=== PATIENT | male | born 1990 | race American Indian/Alaskan Native ===

== ENCOUNTER 2018-09-13 19:08 | Inpatient (IN) | payer OTHER ==
[2018-09-13 19:14] VITALS: BMI 28.1
--- NOTE | 2018-09-13 19:32 | PDOC ---
Attending Attestation - Medical Decision Making 09/13/18 19:[address] Jaimes, psychiatry training consultant, awaiting call back. 8:02pm Second call placed to Dr. Jaimes, psychiatry training consultant, made aware Jaret Xavier NP is training consultant. Call made, awaiting call back. Documentation prepared by Flaco Mosquera, acting as medical office administrator for Angela Berumen MD. 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 As per parents, he was speaking less than usual starting this morning, then his speech became slurred later in the day. This is not his baseline. He states he takes adderall as prescribed. Denies drugs of abuse, alcohol use. Very limited history from patient. He states his thoughts are "blank". - Physicial Exam PE: GENERAL: Awake, alert, and oriented to person and place. HEAD: No signs of trauma EYES: PERRLA, EOMI, sclera anicteric, conjunctiva clear ENT: Auricles normal inspection, hearing grossly normal, nares patent, oropharynx clear without exudates. Moist mucosa NECK: Normal ROM, supple, no lymphadenopathy, JVD, or masses LUNGS: Breath sounds equal, clear to auscultation bilaterally. No wheezes, and no crackles HEART: Regular rate and rhythm, normal S1 and S2, no murmurs, rubs or gallops ABDOMEN: Soft, nontender, normoactive bowel sounds. No guarding, no rebound. No masses EXTREMITIES: Normal range of motion, no edema. No clubbing or cyanosis. No cords, erythema, or tenderness NEUROLOGICAL: Cranial nerves II through XII grossly intact. Normal speech, normal gait. Motor and sensation intact SKIN: Warm, Dry, normal turgor, no rashes or lesions noted. PSYCHIATRIC: Somewhat bizarre affect. Responding to internal stimuli. Paucity of speech. Denies SI/HI. States he is uncertain if he has AH/VH. Appears paranoid. - Medical Decision Making Will obtain AMS workup to r/o any organic cause for the AMS. However, high suspicion for psychiatric etiology. Will consult with psychiatry. <Angela Berumen - Last Filed: 09/13/18 20:17>
[2018-09-13 19:57] LABS: BASO % 0.5 % (0-2.0); EOS % 1.4 % (0-4.5); HEMATOCRIT 39.9 % (35.4-49); HEMOGLOBIN 14.4 GM/dL (11.7-16.9); LYMPH % 17.3 % (8-40); MCH 33.3 pg (25.7-33.7); MEAN CELL VOLUME 92.4 fl (80-96); MEAN PLT VOLUME 7.4 fl (7.5-11.1); MONO % 6.9 % (3.8-10.2); NEUT % 73.9 % (42.8-82.8); PLATELET COUNT 201 K/MM3 (134-434); RBC 4.32 M/mm3 (4.00-5.60); RDW 13.6 % (11.9-15.9); WHITE BLOOD COUNT 9.7 K/mm3 (4.0-10.0)
[2018-09-13 19:58] LABS: URINE APPEARANCE CLEAR; URINE BILIRUBIN NEGATIVE (<2.0 mg/dL); URINE COLOR YELLOW; URINE GLUCOSE (UA) NEGATIVE (NEGATIVE); URINE KETONE 1+ (NEGATIVE); URINE LEUK ESTERASE NEGATIVE (NEGATIVE); URINE NITRITE NEGATIVE (NEGATIVE); URINE PROTEIN NEGATIVE (NEGATIVE)
[2018-09-13 20:08] LABS: COCAINE, UR NEGATIVE ng/ml (CUTOFF=300); METHADONE, UR NEGATIVE ng/ml (CUTOFF=300); OPIATES, URI NEGATIVE ng/ml (CUTOFF=300); PHENCYCLIDINE,URINE NEGATIVE ng/ml (CUTOFF=25); URINE BARBITURATES NEGATIVE ng/ml (CUTOFF=200); URINE BENZODIAZEPINES NEGATIVE ng/ml (CUTOFF=200)
[2018-09-13 20:12] LABS: URINE AMPHETAMINES POSITIVE ng/ml (CUTOFF=500)
[2018-09-13 20:15] LABS: INR 1.16 (0.83-1.09); PROTHROMBIN TIME (PATIENT) 13.7 SEC (9.7-13.0)
--- NOTE | 2018-09-13 20:17 | PDOC ---
History of Present Illness - General Chief Complaint: CVA/TIA Stated Complaint: LOSS OF MEMORY, SLURRED SPEECH Time Seen by Provider: 09/13/18 19:20 History Source: Patient, Family Exam Limitations: Clinical Condition - History of Present Illness Initial Comments: 09/13/18 20:09 The patient is a 28M with a PMH of schizoid personality disorder who presents to the ER with his parents for AMS. The mother states that around 1030 this morning, they noted his voice becoming quieter. This progressed throughout the day. Around 1830, the family noticed that he began to develop slurred speech, which seemed to resolve upon his arrival to the ER. He denies any acute complaints. He denies taking any illicit drugs, EtOH, and cigarette use. Past History - Past Medical History Allergies/Adverse Reactions: Allergies Allergy/AdvReac Type Severity Reaction Status Date / Time No Known Allergies Allergy Verified 09/13/18 19:13 Home Medications: Ambulatory Orders No Home Medications 0 dose .ROUTE UTDICT 03/13/12 Zolpidem Tartrate [Ambien] 10 mg PO HS #5 tablet 12/26/15 COPD: No - Suicide/Smoking/Psychosocial Hx Smoking Status: No Smoking History: Never smoked Number of Cigarettes Smoked Daily: 0 Hx Alcohol Use: No Review of Systems - Review of Systems Able to Perform ROS?: No (Not answering questions ) Is the patient limited [place] proficient: No *Physical Exam - Vital Signs Last Vital Signs Temp Pulse Resp BP Pulse Ox 98.5 F 89 18 134/77 99 09/13/18 19:10 09/13/18 19:10 09/13/18 19:10 09/13/18 19:10 09/13/18 19:10 - Physical Exam Comments: 09/13/18 20:36 GENERAL: Well developed, well nourished. Awake and alert. Bizarre and flat affect. HEENT: Normocephalic, atraumatic. Hearing grossly normal. Moist mucous membranes. PERRLA, EOMI. No conjunctival pallor. Sclera are non-icteric. NECK: Supple. Full ROM. No JVD. CARDIOVASCULAR: Regular rate and rhythm. No murmurs, rubs, or gallops. PULMONARY: No evidence of respiratory distress. Lungs clear to auscultation bilaterally. No wheezing, rales or rhonchi. ABDOMINAL: Soft. Non-tender. Non-distended. No rebound or guarding. GENITOURINARY: No CVA tenderness bilaterally. MUSCULOSKELETAL: Normal range of motion at all joints. No bony deformities or tenderness. EXTREMITIES: No cyanosis. No clubbing. No edema. No calf tenderness or swelling. SKIN: Warm and dry. Normal capillary refill. No rashes. No jaundice. NEUROLOGICAL: Alert, awake, appropriate. Cranial nerves 2-12 grossly intact. Normal speech. PSYCHIATRIC: Cooperative. Minimal eye contact. Staring around the room. Subdued voice. Moderate Sedation - Procedure Monitoring Vital Signs: Procedure Monitoring Vital Signs Temperature 98.5 F 09/13/18 19:10 Pulse Rate 89 09/13/18 19:10 Respiratory Rate 18 09/13/18 19:10 Blood Pressure 134/77 09/13/18 19:10 O2 Sat by Pulse Oximetry (%) 99 09/13/18 19:10 Heart Score/ECG Review #1 ECG reviewed & interpreted by me at: 20:44 General ECG Interpretation: Sinus Rhythm, Normal Rate, Normal Intervals, No acute ischemic changes Compared to previous ECG there are: Previous ECG unavail 09/13/18 20:44 NSR vent rate 95 WV 144 QRS 88 QTc 431 No STD or DEMIAN No signs of acute ischemia ED Treatment Course - LABORATORY CBC & Chemistry Diagram: 09/13/18 19:45 09/13/18 19:45 - ADDITIONAL ORDERS Additional order review: Laboratory Results 09/13/18 19:45 Opiates Screen Negative Methadone Screen Negative Barbiturate Screen Negative Phencyclidine Screen Negative MDMA (Ecstasy) Screen Negative Benzodiazepines Screen Negative Cocaine Screen Negative U Marijuana (THC) Screen Negative 09/13/18 19:45 RBC 4.32 MCV 92.4 MCHC 36.0 H RDW 13.6 D MPV 7.4 L Neutrophils % 73.9 D Lymphocytes % 17.3 D Monocytes % 6.9 Eosinophils % 1.4 Basophils % 0.5 - RADIOLOGY Radiology Studies Ordered: Category Date Time Status HEAD CT WITHOUT CONTRAST [CT] Stat CT Scan 09/13/18 19:42 Ordered Medical Decision Making - Medical Decision Making 09/13/18 20:45 The patient is a 28M with a PMH of schizoid personality disorder who presents to the ER with complaints of abnormal speech. The patient's affect is flat and bizarre, concerning for possible psychotic episode. Concern for paranoia based on exam and pt's behavior. Labs WNL. UA only significant for amphetamines. 1:1 order placed. Pt denies any SI or HI. Triage note appreciated. However, pt has no clinical findings of TIA/CVA. Hx does not correlate with any TIA or CVA. Dr. Jaimes paged x 2. Jaret paged x 2. 09/13/18 21:11 Jaret paged x 3. 09/13/18 22:10 Due to no call back from psych, will page [facility] for possible psych transfer. CTH negative for acute pathology. 09/14/18 00:11 [facility] transfer center called and states that the psychiatrist is reviewing the patient's case. Instructed to f/u in 1 hour. 09/14/18 01:20 [facility] requests documentation. Will send appropriate documentation. Pt is medically clear for psychiatric evaluation at [facility]. 09/14/18 02:50 [facility] requests copy of head CT. Copy of documentation sent. They are requesting a psychiatric evaluation prior to transfer. I have informed them that we do not have psychiatry available for evaluation. Pending call back. 09/14/18 03:19 Pt signed out to Dr. Acosta for further evaluation. *DC/Admit/Observation/Transfer - Referrals Referrals: Danyel Felipe [Primary Care Provider] - - Patient Instructions - Post Discharge Activity
[2018-09-13 20:27] LABS: ALK PHOS 38 U/L (45-117); ANION GAP 7 MMOL/L (8-16); BILIRUBIN,TOTAL 0.7 mg/dL (0.2-1); BLOOD UREA NITROGEN 15 mg/dL (7-18); CALCIUM 8.5 mg/dL (8.5-10.1); CHLORIDE 102 mmol/L (98-107); CO2 27 mmol/L (21-32); CREATININE 1.3 mg/dL (0.55-1.3); GLUCOSE,RANDOM 114 mg/dL (74-106); MAGNESIUM 2.1 mg/dL (1.8-2.4); POTASSIUM 3.7 mmol/L (3.5-5.1); SGOT/AST 7 U/L (15-37); SGPT/ALT 26 U/L (13-61); SODIUM 136 mmol/L (136-145); TOT PROT 6.8 g/dl (6.4-8.2)
--- NOTE | 2018-09-14 04:04 | PDOC ---
*Physical Exam - Vital Signs Last Vital Signs Temp Pulse Resp BP Pulse Ox 98.2 F 95 H 18 112/77 100 09/13/18 23:59 09/13/18 23:59 09/13/18 23:59 09/13/18 23:59 09/13/18 23:59 ED Treatment Course - LABORATORY CBC & Chemistry Diagram: 09/13/18 19:45 09/13/18 19:45 - ADDITIONAL ORDERS Additional order review: Laboratory Results 09/13/18 09/13/18 09/13/18 19:45 19:45 19:45 PT with INR 13.70 H INR 1.16 H Sodium 136 Potassium 3.7 Chloride 102 Carbon Dioxide 27 Anion Gap 7 L BUN 15 Creatinine 1.3 Creat Clearance w eGFR > 60 Random Glucose 114 H Calcium 8.5 Magnesium 2.1 Total Bilirubin 0.7 AST 7 L ALT 26 Alkaline Phosphatase 38 L Creatine Kinase 52 Troponin I < 0.02 Total Protein 6.8 Albumin 4.0 Urine Color Urine Appearance Urine pH Ur Specific [place] Urine Protein Urine Glucose (UA) Urine Ketones Urine Blood Urine Nitrite Urine Bilirubin Urine Urobilinogen Ur Leukocyte Esterase Salicylates Opiates Screen Negative Methadone Screen Negative Acetaminophen Barbiturate Screen Negative Phencyclidine Screen Negative Ur Amphetamines Screen Positive A* MDMA (Ecstasy) Screen Negative Benzodiazepines Screen Negative Cocaine Screen Negative U Marijuana (THC) Screen Negative Alcohol, Quantitative < 3.0 09/13/18 09/13/18 19:45 19:45 PT with INR INR Sodium Potassium Chloride Carbon Dioxide Anion Gap BUN Creatinine Creat Clearance w eGFR Random Glucose Calcium Magnesium Total Bilirubin AST ALT Alkaline Phosphatase Creatine Kinase Troponin I Total Protein Albumin Urine Color Yellow Urine Appearance Clear Urine pH 5.0 Ur Specific [place] 1.028 Urine Protein Negative Urine Glucose (UA) Negative Urine Ketones 1+ H Urine Blood Negative Urine Nitrite Negative Urine Bilirubin Negative Urine Urobilinogen 2.0 Ur Leukocyte Esterase Negative Salicylates < 1.7 L Opiates Screen Methadone Screen Acetaminophen < 2.0 L Barbiturate Screen Phencyclidine Screen Ur Amphetamines Screen MDMA (Ecstasy) Screen Benzodiazepines Screen Cocaine Screen U Marijuana (THC) Screen Alcohol, Quantitative 09/13/18 19:45 RBC 4.32 MCV 92.4 MCHC 36.0 H RDW 13.6 D MPV 7.4 L Neutrophils % 73.9 D Lymphocytes % 17.3 D Monocytes % 6.9 Eosinophils % 1.4 Basophils % 0.5 Medical Decision Making - Medical Decision Making Pt was signed out to me by resident Dr. Ordoñez, who explained the presentation, ED course, any pending results, and needed interventions. Pending interventions include psych evaluation before pt can be transferred to [facility]. Pt is currently stable and is lying comfortably. 09/14/18 03:56 Spoke with hospitalist team, who accepted pt for ED OBS/short stay. Will also attempt to call [facility] to see if they will accept the pt for psychiatric eval. Pts father has signed transfer consent forms for [facility]. 09/14/18 04:04 [facility] has no psychiatric beds available. Pending psych eval by [facility] in the AM. Hospitalist team has come to see the pt at bedside. 09/14/18 04:38 *DC/Admit/Observation/Transfer - Discharge Dispostion Decision to Admit order Date/Time: Decision to Admit Order Category Date Time Status Decision to Admit to Hospital Routine Admission 09/14/18 03:50 Ordered - Referrals Referrals: Danyel Felipe [Primary Care Provider] - - Patient Instructions - Post Discharge Activity
--- NOTE | 2018-09-14 05:49 | HP ---
CHIEF COMPLAINT: slurred speech HISTORY OF PRESENT ILLNESS: 28 y/o M w/PMH of schizoid personality d/o brought into ER for slurred speech. This AM pt's voice quieter than usual and progressed throughout the day. Pt then had slurred speech but no motor deficits and pt remembers slurred speech but did not offer any explanation. Pt did not have slurred speech in ER. Pt has flat affect and does not answer all questions asked. He did not answer when asked about hallucinations. He denies SI/HI. He denies CP, SOB, N/V/F/C, abd pain, LE edema. Pt is on adderall and nardil. Denies drug use. ER course was notable for: (1) (2) (3) PAST MEDICAL HISTORY: schizoid peronality d/o PAST SURGICAL HISTORY: no surgeries Social History: Smoking: denies Alcohol: denies Drugs: denies Family History: n-c Allergies No Known Allergies Allergy (Verified 09/13/18 19:13) HOME MEDICATIONS: Home Medications Medication Instructions Recorded No Home Medications 0 dose .ROUTE UTDICT 03/13/12 Zolpidem Tartrate [Ambien] 10 mg PO HS #5 tablet 12/26/15 REVIEW OF SYSTEMS CONSTITUTIONAL: Absent: fever, chills CARDIOVASCULAR: Absent: chest pain RESPIRATORY: Absent: cough GASTROINTESTINAL: Absent: abdominal pain GENITOURINARY: Absent: dysuria PSYCHIATRIC: Absent: suicidal or homicidal ideation PHYSICAL EXAMINATION Vital Signs - 24 hr 09/13/18 09/13/18 19:10 23:59 Temperature 98.5 F 98.2 F Pulse Rate 89 Pulse Rate [ 95 H Apical] Respiratory 18 18 Rate Blood Pressure 134/77 Blood Pressure 112/77 [Right Arm] O2 Sat by Pulse 99 100 Oximetry (%) GENERAL: Awake, alert, and fully oriented, in no acute distress. Very slow to answer questions. Does not answer all questions. HEAD: Normal with no signs of trauma. EYES: Pupils equal, round and reactive to light, sclera anicteric, conjunctiva clear. EARS, NOSE, THROAT: Ears normal, nares patent, NECK: Normal range of motion LUNGS: Breath sounds equal, clear to auscultation bilaterally. No wheezes, and no crackles. No accessory muscle use. HEART: Regular rate and rhythm, normal S1 and S2 without murmur, rub or gallop. ABDOMEN: Soft, nontender, not distended, normoactive bowel sounds LOWER EXTREMITIES: warm, well-perfused. No peripheral edema. PSYCHIATRIC: Not completely cooperative with all questions. Flat affect. SKIN: Warm, dry Laboratory Results - last 24 hr 09/13/18 09/13/18 09/13/18 19:45 19:45 19:45 WBC RBC Hgb Hct MCV MCH MCHC RDW Plt Count MPV Absolute Neuts (auto) Neutrophils % Lymphocytes % Monocytes % Eosinophils % Basophils % Nucleated RBC % PT with INR INR Sodium Potassium Chloride Carbon Dioxide Anion Gap BUN Creatinine Creat Clearance w eGFR Random Glucose Calcium Magnesium Total Bilirubin AST ALT Alkaline Phosphatase Creatine Kinase Troponin I Total Protein Albumin Urine Color Yellow Urine Appearance Clear Urine pH 5.0 Ur Specific [place] 1.028 Urine Protein Negative Urine Glucose (UA) Negative Urine Ketones 1+ H Urine Blood Negative Urine Nitrite Negative Urine Bilirubin Negative Urine Urobilinogen 2.0 Ur Leukocyte Esterase Negative Salicylates < 1.7 L Opiates Screen Negative Methadone Screen Negative Acetaminophen < 2.0 L Barbiturate Screen Negative Phencyclidine Screen Negative Ur Amphetamines Screen Positive A* MDMA (Ecstasy) Screen Negative Benzodiazepines Screen Negative Cocaine Screen Negative U Marijuana (THC) Screen Negative Alcohol, Quantitative 09/13/18 09/13/18 09/13/18 19:45 19:45 19:45 WBC 9.7 RBC 4.32 Hgb 14.4 Hct 39.9 MCV 92.4 MCH 33.3 D MCHC 36.0 H RDW 13.6 D Plt Count 201 MPV 7.4 L Absolute Neuts (auto) 7.2 Neutrophils % 73.9 D Lymphocytes % 17.3 D Monocytes % 6.9 Eosinophils % 1.4 Basophils % 0.5 Nucleated RBC % 0 PT with INR 13.70 H INR 1.16 H Sodium 136 Potassium 3.7 Chloride 102 Carbon Dioxide 27 Anion Gap 7 L BUN 15 Creatinine 1.3 Creat Clearance w eGFR > 60 Random Glucose 114 H Calcium 8.5 Magnesium 2.1 Total Bilirubin 0.7 AST 7 L ALT 26 Alkaline Phosphatase 38 L Creatine Kinase 52 Troponin I < 0.02 Total Protein 6.8 Albumin 4.0 Urine Color Urine Appearance Urine pH Ur Specific [place] Urine Protein Urine Glucose (UA) Urine Ketones Urine Blood Urine Nitrite Urine Bilirubin Urine Urobilinogen Ur Leukocyte Esterase Salicylates Opiates Screen Methadone Screen Acetaminophen Barbiturate Screen Phencyclidine Screen Ur Amphetamines Screen MDMA (Ecstasy) Screen Benzodiazepines Screen Cocaine Screen U Marijuana (THC) Screen Alcohol, Quantitative < 3.[address] - no acute intracranial pathology. f/u official read ASSESSMENT/PLAN: 28 y/o M w/PMH of schizoid personality d/o brought into ER for slurred speech. Possible worsening of underlying psych d/o. Will r/o organic causes. -Worsening of schizoid personality d/o -TSH, Vit B12. May be secondary to adderall abuse although it is prescribed by psych -F/u Psych rec -1:1 monitoring -Utox positive for amphetamines only (on adderall) -consider inpatient psych -FEN -No fluids -electrolytes wnl -Regular diet with no metal utensils or sharp objects. -Dispo: awaiting transfer to inpatient psych and psych eval here Visit type - Emergency Visit Emergency Visit: Yes ED Registration Date: 09/14/18 Care time: The patient presented to the Emergency Department on the above date and was hospitalized for further evaluation of their emergent condition. - New Patient This patient is new to me today: Yes Date on this admission: 09/14/18 - Critical Care Critical Care patient: No
--- NOTE | 2018-09-14 06:08 | PN ---
Teaching Attending Note Name of Resident: [place] Florian ATTENDING PHYSICIAN STATEMENT I saw and evaluated the patient. chart, data, imaging reviewed. I reviewed the resident's note and discussed the case with the resident. I agree with the resident's findings and plan as documented. SUBJECTIVE: 28 y/o M w/PMH of schizoid personality d/o brought into ER by parents for altered behaviour including slowed mentation and slurred speech. Patient has been taking prescribed adderall for 2 years and was started on Nardil (a MAOi) about 4 months ago as per his parents. Patient does not answer questions readily. Unclear whether there is suicidal or homicidal ideation. phenelzine (Nardil), OBJECTIVE: Last Vital Signs Temp Pulse Resp BP Pulse Ox 98.2 F 95 H 18 112/77 100 09/13/18 23:59 09/13/18 23:59 09/13/18 23:59 09/13/18 23:59 09/13/18 23:59 general -flat affect, nad, nontoxic heent-at, nc neck-no masses cv-s1+s2+rrr chest-clear ext - no pedal edema Abnormal Lab Results 09/13/18 09/13/18 09/13/18 19:45 19:45 19:45 MCHC MPV PT with INR INR Anion Gap Random Glucose AST Alkaline Phosphatase Urine Ketones 1+ H Salicylates < 1.7 L Acetaminophen < 2.0 L Ur Amphetamines Screen Positive A* 09/13/18 09/13/18 09/13/18 19:45 19:45 19:45 MCHC 36.0 H MPV 7.4 L PT with INR 13.70 H INR 1.16 H Anion Gap 7 L Random Glucose 114 H AST 7 L Alkaline Phosphatase 38 L Urine Ketones Salicylates Acetaminophen Ur Amphetamines Screen head CT reviewed ASSESSMENT AND PLAN: 28yo man with acute psychosis with personality/behavior change. May be side affect from medications - Adderrall, Nardil, vs underlying psych disorder. -observation -psych evaluation -avoid psychotropic medications -1 to 1 observation -fall precautions -heparin sc for dvt ppx
--- NOTE | 2018-09-14 07:05 | PDOC ---
*Physical Exam - Vital Signs Last Vital Signs Temp Pulse Resp BP Pulse Ox 98.2 F 95 H 18 112/77 100 09/13/18 23:59 09/13/18 23:59 09/13/18 23:59 09/13/18 23:59 09/13/18 23:59 ED Treatment Course - LABORATORY CBC & Chemistry Diagram: 09/13/18 19:45 09/13/18 19:45 - ADDITIONAL ORDERS Additional order review: Laboratory Results 09/13/18 09/13/18 09/13/18 19:45 19:45 19:45 PT with INR 13.70 H INR 1.16 H Sodium 136 Potassium 3.7 Chloride 102 Carbon Dioxide 27 Anion Gap 7 L BUN 15 Creatinine 1.3 Creat Clearance w eGFR > 60 Random Glucose 114 H Calcium 8.5 Magnesium 2.1 Total Bilirubin 0.7 AST 7 L ALT 26 Alkaline Phosphatase 38 L Creatine Kinase 52 Troponin I < 0.02 Total Protein 6.8 Albumin 4.0 Urine Color Urine Appearance Urine pH Ur Specific [place] Urine Protein Urine Glucose (UA) Urine Ketones Urine Blood Urine Nitrite Urine Bilirubin Urine Urobilinogen Ur Leukocyte Esterase Salicylates Opiates Screen Negative Methadone Screen Negative Acetaminophen Barbiturate Screen Negative Phencyclidine Screen Negative Ur Amphetamines Screen Positive A* MDMA (Ecstasy) Screen Negative Benzodiazepines Screen Negative Cocaine Screen Negative U Marijuana (THC) Screen Negative Alcohol, Quantitative < 3.0 09/13/18 09/13/18 19:45 19:45 PT with INR INR Sodium Potassium Chloride Carbon Dioxide Anion Gap BUN Creatinine Creat Clearance w eGFR Random Glucose Calcium Magnesium Total Bilirubin AST ALT Alkaline Phosphatase Creatine Kinase Troponin I Total Protein Albumin Urine Color Yellow Urine Appearance Clear Urine pH 5.0 Ur Specific [place] 1.028 Urine Protein Negative Urine Glucose (UA) Negative Urine Ketones 1+ H Urine Blood Negative Urine Nitrite Negative Urine Bilirubin Negative Urine Urobilinogen 2.0 Ur Leukocyte Esterase Negative Salicylates < 1.7 L Opiates Screen Methadone Screen Acetaminophen < 2.0 L Barbiturate Screen Phencyclidine Screen Ur Amphetamines Screen MDMA (Ecstasy) Screen Benzodiazepines Screen Cocaine Screen U Marijuana (THC) Screen Alcohol, Quantitative 09/13/18 19:45 RBC 4.32 MCV 92.4 MCHC 36.0 H RDW 13.6 D MPV 7.4 L Neutrophils % 73.9 D Lymphocytes % 17.3 D Monocytes % 6.9 Eosinophils % 1.4 Basophils % 0.5 Medical Decision Making - Medical Decision Making 09/14/18 07:05 Patient signed out by resident Dr. Acosta. In short patient with a history of schizoid personality who presents with acute psychosis w/ paranoid delusions that are not at baseline. The patient took Adderall. [place] informed of need for transfer, but pending psych eval. ED Course:
--- NOTE | 2018-09-14 09:40 | PN ---
Progress Note (short form) - Note Progress Note: Subjective: no fever or chills, he denied pain, or SOB or ELDRIDGE. when he was asked why he was here he said "Suicide" but then corrected himself "no". parents deny any Suicide ideation or attempts . he reports slow speech and not being able to remember things. per parents, he was diagnosed with schizophrenia i n 2016 and was hospitalized then. compliant with his meds, not on any benzos, and had nardil added 4 months ago. denies hallucinations . Objective: Vital Signs: Last Vital Signs Temp Pulse Resp BP Pulse Ox 98.2 F 110 H 18 118/58 L 99 09/13/18 23:59 09/14/18 09:24 09/14/18 09:24 09/14/18 09:24 09/14/18 09:24 Laboratory Results - last 24 hr 09/13/18 09/13/18 09/13/18 19:45 19:45 19:45 WBC RBC Hgb Hct MCV MCH MCHC RDW Plt Count MPV Absolute Neuts (auto) Neutrophils % Lymphocytes % Monocytes % Eosinophils % Basophils % Nucleated RBC % PT with INR INR Sodium Potassium Chloride Carbon Dioxide Anion Gap BUN Creatinine Creat Clearance w eGFR Random Glucose Calcium Magnesium Total Bilirubin AST ALT Alkaline Phosphatase Creatine Kinase Troponin I Total Protein Albumin Vitamin B12 TSH Urine Color Yellow Urine Appearance Clear Urine pH 5.0 Ur Specific [place] 1.028 Urine Protein Negative Urine Glucose (UA) Negative Urine Ketones 1+ H Urine Blood Negative Urine Nitrite Negative Urine Bilirubin Negative Urine Urobilinogen 2.0 Ur Leukocyte Esterase Negative Salicylates < 1.7 L Opiates Screen Negative Methadone Screen Negative Acetaminophen < 2.0 L Barbiturate Screen Negative Phencyclidine Screen Negative Ur Amphetamines Screen Positive A* MDMA (Ecstasy) Screen Negative Benzodiazepines Screen Negative Cocaine Screen Negative U Marijuana (THC) Screen Negative Alcohol, Quantitative 09/13/18 09/13/18 09/13/18 19:45 19:45 19:45 WBC 9.7 RBC 4.32 Hgb 14.4 Hct 39.9 MCV 92.4 MCH 33.3 D MCHC 36.0 H RDW 13.6 D Plt Count 201 MPV 7.4 L Absolute Neuts (auto) 7.2 Neutrophils % 73.9 D Lymphocytes % 17.3 D Monocytes % 6.9 Eosinophils % 1.4 Basophils % 0.5 Nucleated RBC % 0 PT with INR 13.70 H INR 1.16 H Sodium 136 Potassium 3.7 Chloride 102 Carbon Dioxide 27 Anion Gap 7 L BUN 15 Creatinine 1.3 Creat Clearance w eGFR > 60 Random Glucose 114 H Calcium 8.5 Magnesium 2.1 Total Bilirubin 0.7 AST 7 L ALT 26 Alkaline Phosphatase 38 L Creatine Kinase 52 Troponin I < 0.02 Total Protein 6.8 Albumin 4.0 Vitamin B12 TSH Urine Color Urine Appearance Urine pH Ur Specific [place] Urine Protein Urine Glucose (UA) Urine Ketones Urine Blood Urine Nitrite Urine Bilirubin Urine Urobilinogen Ur Leukocyte Esterase Salicylates Opiates Screen Methadone Screen Acetaminophen Barbiturate Screen Phencyclidine Screen Ur Amphetamines Screen MDMA (Ecstasy) Screen Benzodiazepines Screen Cocaine Screen U Marijuana (THC) Screen Alcohol, Quantitative < 3.0 09/14/18 09/14/18 07:07 07:07 WBC RBC Hgb Hct MCV MCH MCHC RDW Plt Count MPV Absolute Neuts (auto) Neutrophils % Lymphocytes % Monocytes % Eosinophils % Basophils % Nucleated RBC % PT with INR INR Sodium Potassium Chloride Carbon Dioxide Anion Gap BUN Creatinine Creat Clearance w eGFR Random Glucose Calcium Magnesium Total Bilirubin AST ALT Alkaline Phosphatase Creatine Kinase Troponin I Total Protein Albumin Vitamin B12 1470 H TSH 1.02 Urine Color Urine Appearance Urine pH Ur Specific [place] Urine Protein Urine Glucose (UA) Urine Ketones Urine Blood Urine Nitrite Urine Bilirubin Urine Urobilinogen Ur Leukocyte Esterase Salicylates Opiates Screen Methadone Screen Acetaminophen Barbiturate Screen Phencyclidine Screen Ur Amphetamines Screen MDMA (Ecstasy) Screen Benzodiazepines Screen Cocaine Screen U Marijuana (THC) Screen Alcohol, Quantitative Physical Exam: NAd, flat affect, slow responses , answers most questions, avoids eye contact. no slurred speech. HEENT: EOMI, round equal pupils, reactive to light. no facial droop, tongue at mid line. CV: RRR Lungs : CTAB Abd:declined declined to uncover his legs for exam. neuro: EOMI, round equal pupils, reactive to light. no facial droop, tongue at mid line. , strength 5/5 in upper and lower extremities proximally and distally. sensation to light touch NL. reflexes 2+ knee jerk and biceps b/l Imaging: CT head image reviewed, report pending Assessment/Plan: 28 y/o man with h/o schizophrenia who presented with decreased responses. 1- Bnormal behavior : decreased responses . could be due to his underlying schizophrenia. has no visual or auditory hallucinations. lab work does not reflect any abnormalities, and head CT NL to my eyes, report pending. drug screen neg except for his prescribed amphetamine . No signs of infection - psych eval pending - ? inpatient psych - camryn ask Psych if we should continue his meds in mean time - family is interested in C. patient agrees to inpt psyc admission if needed Visit type - Emergency Visit Emergency Visit: Yes ED Registration Date: 09/14/18 Care time: The patient presented to the Emergency Department on the above date and was hospitalized for further evaluation of their emergent condition. - New Patient This patient is new to me today: No - Critical Care Critical Care patient: No
[2018-09-14 11:00] LABS: BASO % 0.6 % (0-2.0); EOS % 1.7 % (0-4.5); HEMATOCRIT 37.9 % (35.4-49); HEMOGLOBIN 13.8 GM/dL (11.7-16.9); LYMPH % 15.5 % (8-40); MCH 33.3 pg (25.7-33.7); MCHC 36.4 g/dl (32.0-35.9); MEAN CELL VOLUME 91.3 fl (80-96); MEAN PLT VOLUME 7.5 fl (7.5-11.1); MONO % 8.1 % (3.8-10.2); NEUT % 74.1 % (42.8-82.8); PLATELET COUNT 196 K/MM3 (134-434); RBC 4.15 M/mm3 (4.00-5.60); RDW 13.2 % (11.9-15.9); WHITE BLOOD COUNT 8.5 K/mm3 (4.0-10.0)
[2018-09-14 11:34] LABS: ALBUMIN 3.5 g/dl (3.4-5.0); ALK PHOS 36 U/L (45-117); ANION GAP 6 MMOL/L (8-16); BILIRUBIN,TOTAL 0.6 mg/dL (0.2-1); BLOOD UREA NITROGEN 10 mg/dL (7-18); CALCIUM 8.5 mg/dL (8.5-10.1); CHLORIDE 105 mmol/L (98-107); CO2 27 mmol/L (21-32); GLUCOSE,RANDOM 127 mg/dL (74-106); POTASSIUM 3.8 mmol/L (3.5-5.1); SGOT/AST 15 U/L (15-37); SGPT/ALT 24 U/L (13-61); SODIUM 138 mmol/L (136-145); TOT PROT 6.3 g/dl (6.4-8.2)
--- NOTE | 2018-09-14 14:55 | PDOC ---
*Physical Exam - Vital Signs Last Vital Signs Temp Pulse Resp BP Pulse Ox 98.2 F 110 H 18 118/58 L 99 09/13/18 23:59 09/14/18 09:24 09/14/18 09:24 09/14/18 09:24 09/14/18 09:24 - Physical Exam General Appearance: Yes: Nourished Respiratory/Chest: positive: Lungs Clear, Normal Breath Sounds Cardiovascular: positive: Regular Rhythm, Regular Rate, S1, S2 ED Treatment Course - LABORATORY CBC & Chemistry Diagram: 09/14/18 10:47 09/14/18 10:47 - ADDITIONAL ORDERS Additional order review: 09/13/18 19:45 RBC 4.32 MCV 92.4 MCHC 36.0 H RDW 13.6 D MPV 7.4 L Neutrophils % 73.9 D Lymphocytes % 17.3 D Monocytes % 6.9 Eosinophils % 1.4 Basophils % 0.5 Medical Decision Making - Medical Decision Making 09/14/18 14:51 28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 odd behavior, and flattened affect. yesterday was talking differentily, acting bizarre. had ct evaluation which was negative. decided psychosis. pt awaiting in ED for placement and psych eval . dr walter beebe, is away. will be returning at 7:30 pm. called SHAHNA[facility] Xavier, is away also. d/w bladimir many times. reviewed case. called told declines and no bed. return call again 14:30, requesting repeat labs and psych eval. will resend labs, pending psych eval at 7 pm. pt calm while in ed. *DC/Admit/Observation/Transfer Diagnosis at time of Disposition: Psychosis - Referrals - Patient Instructions - Post Discharge Activity
--- NOTE | 2018-09-14 19:55 | CON.PSY ---
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 Francis bailey under DR Olivo"s care and is on Nardil 15mg pomtyid and he takeds Prednisone 60 mg po od by himself whisch he buys from the [employer]. Symptoms: reports: Disorganized/Disruptive Thoughts, Delusions, Attention Deficit - Previous Psychiatric Treatment Outpatient: Less than 6 mos ago Inpatient: One prior admission - Previous Substance Abuse Treatment Outpatient: None Inpatient: None - Reason for Previous Treatment Reason for Previous Treatment: Psychotic Episode - Allergies Allergies: Allergies Allergy/AdvReac Type Severity Reaction Status Date / Time No Known Allergies Allergy Verified 09/13/18 19:13 - Current Living Status Usual Living Arrangement: With Parent - Current Mental Status Evaluation Appearance: Disheveled Attitude: Guarded - Affect Affect: Constrictive Appropriateness: Not Appropriate - Mood Mood: Depressed - Speech/Language Expressive: Delayed - Psychomotor Activity Psychomotor Activity: Slowed - Thought Process Thought Process: Transgential, Gibson - Thought Content Hallucinations: Absent Type: Thought Insertion/Withdrawal - Self Perception Self Perception: No Impairment - Cognition Attention: Alert Orientation: Time Memory, Immediate Recall: Intact Memory, Short Term: 2/3 Memory, Remote with Promptin/3 - Concentration Serial Sevens Intact: No Simple Calculations Intact: Yes - Abstraction Proverb Interpretation: Gibson Judgement: Moderately Impaired - Insight Insight: Impaired - Impulse Control Impulse Control: Moderately Impaired - Suicidal Ideation Suicidal Ideation: No - Homicidal Ideation Homicidal Ideation: No Assessment/Plan 1) Patient is acutely Psychotic and needs in patient psych Hospitalization to stabilize his mental status.
--- NOTE | 2018-09-14 22:11 | EKG ---
Test Reason : Blood Pressure : / mmHG Vent. Rate : 098 BPM Atrial Rate : 098 BPM P-R Int : 144 ms QRS Dur : 088 ms QT Int : 338 ms P-R-T Axes : 068 069 025 degrees QTc Int : 431 ms NORMAL SINUS RHYTHM NONSPECIFIC T WAVE ABNORMALITY ABNORMAL ECG NO PREVIOUS ECGS AVAILABLE Confirmed by IONA KELLY MD ([id number]) on 09/14/2018 10:10:59 PM Referred By: Confirmed By:IONA KELLY MD
[2018-09-15] MEDS ORDERED: HALOPERIDOL LACTATE 5 MG/ML IM ONE (05:53)
[2018-09-15] MEDS ORDERED: HALOPERIDOL LACTATE 5 MG/ML ONE (05:56)
[2018-09-15] MEDS ORDERED: LORazepam 2 MG/ML SDV VIAL ONE (05:57)
--- NOTE | 2018-09-15 11:58 | PN ---
Teaching Attending Note Name of Resident: Azeb Beltran ATTENDING PHYSICIAN STATEMENT I saw and evaluated the patient. I reviewed the resident's note and discussed the case with the resident. I agree with the resident's findings and plan as documented. SUBJECTIVE: events noted for agitaiton early am, and he was given haldol, ativan and benadryl. he is sedated now. family at bedside and has no additional comments OBJECTIVE: sedated, sleeping HEENT: no facial droop CV: RRR Lungs : CTAB Ext : no edema Assessment/Plan: 28 y/o man with h/o schizophrenia who presented with decreased responses. 1- Acute psychosis:need inpatient psych hospitalization - Sedated now, but if he wakes up , can give him his home meds - awaiting a bed at [facility] d/w parents
--- NOTE | 2018-09-15 13:04 | DS ---
Physical Exam: SUBJECTIVE: Patient seen and examined OBJECTIVE: Vital Signs Period Temp Pulse Resp BP Sys/Dukes Pulse Ox Last 24 Hr 98.3 F 72-90 14-18 100-120/58-82 98-100 PHYSICAL EXAM GENERAL: The patient is awake, alert, and fully oriented, in no acute distress. HEAD: Normal with no signs of trauma. EYES: PERRL, extraocular movements intact, sclera anicteric, conjunctiva clear. ENT: Ears normal, nares patent, oropharynx clear without exudates, moist mucous membranes. NECK: Trachea midline, full range of motion, supple. LUNGS: Breath sounds equal, clear to auscultation bilaterally, no wheezes, no crackles, no accessory muscle use. HEART: Regular rate and rhythm, S1, S2 without murmur, rub or gallop. ABDOMEN: Soft, nontender, nondistended, normoactive bowel sounds, no guarding, no rebound, no hepatosplenomegaly, no masses. EXTREMITIES: 2+ pulses, warm, well-perfused, no edema. NEUROLOGICAL: Cranial nerves II through XII grossly intact. Normal speech, gait not observed. PSYCH: Normal mood, normal affect. SKIN: Warm, dry, normal turgor, no rashes or lesions noted. LABS HOSPITAL COURSE: Date of Admission:09/14/18 28 y.o male who came in with slurred speech and worsening of patients psychotic condition Date of Discharge: 09/15/18 Minutes to complete discharge: 39 Discharge Summary Reason For Visit: ACUTE PSYCHOSIS,SCHIZOID,PERSONA;OTY DISORDER Current Active Problems Psychosis (Acute) - Instructions Referrals: Danyel Felipe [Primary Care Provider] - - Home Medications Comprehensive Discharge Medication List: Ambulatory Orders Dextroamphetamine/Amphetamine [Adderall Xr 20 mg Capsule] 60 mg PO DAILY Phenelzine Sulfate [Nardil] 15 mg PO DAILY 09/14/18
[2018-09-15 16:30] VITALS: PULSE 90; TEMP 99
--- NOTE | 2018-09-15 17:25 | PN ---
Physical Exam: SUBJECTIVE: Patient seen and examined at bedside- very lethargic; was violent overnight and received haldol/benadryl/ativan overnight OBJECTIVE: Vital Signs Period Temp Pulse Resp BP Sys/Dukes Pulse Ox Last 24 Hr 98.3 F-99 F 72-90 14-18 100-120/58-82 98-100 GENERAL: The patient is lethargic/ somnolent EYES: PEERLA; EOMI; no scleral icterus. NECK: no JVD; no lymphadenopathy LUNGS: CTA B/L; no rales, rhonchi or wheezing. HEART: Regular rate and rhythm, S1, S2 without murmur, rub or gallop. ABDOMEN: Soft, nontender, nondistended, normoactive bowel sounds, no guarding, no rebound, no hepatosplenomegaly, no masses. EXTREMITIES: 2+ pulses, warm, well-perfused, no edema. NEUROLOGICAL: Cranial nerves II through XII grossly intact. Normal speech, gait not observed. PSYCH: Normal mood, normal affect. 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 Possible worsening of underlying psych d/o. Will r/o organic causes. -Worsening of schizoid personality d/o -TSH, Vit B12. May be secondary to adderall abuse although it is prescribed by psych -F/u Psych rec -1:1 monitoring -Utox positive for amphetamines only (on adderall) -consider inpatient psych -FEN -No fluids -electrolytes wnl -Regular diet with no metal utensils or sharp objects. -Dispo: awaiting transfer to inpatient psych and psych eval here Problem List - Problems (1) Psychosis Code(s): F29 - UNSP PSYCHOSIS NOT DUE TO A SUBSTANCE OR KNOWN PHYSIOL COND Visit type - Emergency Visit Emergency Visit: Yes ED Registration Date: 09/14/18 Care time: The patient presented to the Emergency Department on the above date and was hospitalized for further evaluation of their emergent condition. - New Patient This patient is new to me today: Yes Date on this admission: 09/15/18 - Critical Care Critical Care patient: No
[2018-09-15 22:39] VITALS: BP 121/71
[2018-09-16] MEDS ORDERED: PATIENT'S OWN MEDICATION (NON-FORMULARY) (Dextroamphetamine/Amphetamine [Adderall Xr 20 Mg PO SCH (10:00)
[2018-09-16] MEDS ORDERED: PHENELZINE SULFATE 15 MG PO SCH (10:00)
== END 2018-09-15 21:35 | disposition short-term general hospital (02) | DRG 751 ==
LOC: JER 19:08 → JERBED 09-14 03:50
PROVIDERS: ADMIT Internal Medicine; ATTEND Internal Medicine
DX: F23 Brief psychotic disorder (principal); F60.1 Schizoid personality disorder; R47.81 Slurred speech; F29 Unspecified psychosis not due to a substance or known physiological condition; F22 Delusional disorders
CPT/HCPCS: 36415; 70450-TC; 80053; 80307; 81003; 82550; 82607; 83735; 84443; 84484; 85025; 85610; 93005; 93010; 99285-25